=== PATIENT | male | born 1995 | race Caucasian/White ===

== ENCOUNTER 2022-12-10 21:45 | Emergency (ER) | payer SELFPAY ==
[~2022-12-10] VITALS: Ht 182.9 cm; Wt 102.1 kg
[2022-12-10 21:52] VITALS: BP 167/103
[2022-12-11] MEDS ORDERED: CEPH500 PO (00:28)
== END 2022-12-11 00:42 | disposition home or self-care (01) ==
LOC: ER 21:45
DX: T63.441A Toxic effect of venom of bees, accidental (unintentional), initial encounter (principal); Z91.030 Bee allergy status
CPT/HCPCS: 99282; A9270